=== PATIENT | female | born 1935 | race Caucasian/White ===

== ENCOUNTER 2019-01-03 09:34 | Emergency (ER) | payer OTHER ==
[~2019-01-03] VITALS: Ht 160 cm; Wt 72.6 kg
[2019-01-03] MEDS ORDERED: NORVASC2.5 M1 (09:52)
[2019-01-03] MEDS ORDERED: ATENOLOL50 MG (09:52)
[2019-01-03] MEDS ORDERED: VOLTAREN-XR100 MG (09:52)
[2019-01-03] MEDS ORDERED: HYZAAR 100-251 EACH (09:52)
[2019-01-03] MEDS ORDERED: NITROGLYCERIN2.5 MG (09:53)
[2019-01-03] MEDS ORDERED: PROZAC10 MG (09:53)
[2019-01-03] MEDS ORDERED: CELEBREX100 MG PO (11:40)
[2019-01-03] MEDS ORDERED: SKELAXIN800 MG PO (11:40)
== END 2019-01-03 12:23 | disposition home or self-care (01) ==
LOC: ER 09:34
DX: M54.31 Sciatica, right side (principal)

== ENCOUNTER 2019-01-06 19:12 | Emergency (ER) | payer OTHER ==
[~2019-01-06] VITALS: Ht 160 cm; Wt 72.6 kg
[~2019-01-06 19:12] MED LIST: ATENOLOL50 MG; CELEBREX100 MG PO; HYZAAR 100-251 EACH; NITROGLYCERIN2.5 MG; NORVASC2.5 M1; PROZAC10 MG; SKELAXIN800 MG PO; VOLTAREN-XR100 MG
== END 2019-01-06 22:07 | disposition home or self-care (01) ==
LOC: ER 19:12
DX: M51.27 Other intervertebral disc displacement, lumbosacral region (principal)